=== PATIENT | female | born 1955 | race Asian ===

== ENCOUNTER 2017-02-20 00:03 | Emergency (ER) | payer OTHER ==
[~2017-02-20] VITALS: Ht 162.6 cm; Wt 60.5 kg
[2017-02-20 00:06] VITALS: Ht 162.6 cm; Wt 60.5 kg
[2017-02-20] MEDS ORDERED: AZIT250T94 PO (04:03)
[2017-02-20] MEDS ORDERED: ACET325T33 PO (04:03)
[2017-02-20] MEDS ORDERED: D-ME473S18 PO (04:03)
--- NOTE | 2017-02-20 04:25 | ERD ---
ER Documentation Chief Complaint Date/Time DATE: 02/20/17 TIME: 04:22 Chief Complaint cough x 10 days, fever at times HPI This patient is a 61-year-old female with history of hypertension, hypercholesterolemia, presenting to the emergency department for cough ongoing for the past 10 days. Symptoms are worsening. Additionally the patient reports tactile fevers. The patient states she is unsure whether she has had bronchitis or pneumonia in the past. The patient is currently taking no medications for relief of her symptoms. The patient denies nausea, vomiting, diarrhea, chest pain, shortness of breath, or other symptoms at this time. ROS All systems reviewed and are negative except as per history of present illness. Medications Home Meds Active Scripts Acetaminophen* (Tylenol*) 325 Mg Tablet, 2 TAB PO Q6 Y for PAIN AND OR ELEVATED TEMP, #20 TAB Prov:VICKI FLORENCE PA-C 02/20/17 Dextromethorphan Hb-Promethazine Hcl (Promethazine DM Syrup) 473 Ml Syrup, 5 ML PO Q6H Y for COUGH, #4 OZ Prov:VICKI FLORENCE PA-C 02/20/17 Azithromycin* (Zithromax*) 250 Mg Tablet, 250 MG PO .ZPACK DIRECTED, #6 TAB TAKE 500 MG (2 TABS) THE FIRST DAY THEN 250 MG (1 TAB) DAYS 2-5 Prov:VICKI FLORENCE PA-C 02/20/17 Allergies Allergies: Coded Allergies: No Known Allergy (Unverified , 02/20/17) PMhx/Soc History of Surgery: Yes (Vericose veins) Anesthesia Reaction: No Hx Cardiac Disorders: Yes (HTN cholesterol) Hx Alcohol Use: No Hx Substance Use: No Hx Tobacco Use: No Smoking Status: Never smoker FmHx Noncontributory for chief complaint Physical Exam Vitals Vital Signs Date Time Temp Pulse Resp B/P Pulse Ox O2 Delivery O2 Flow Rate FiO2 02/20/17 00:06 99.9 96 20 156/83 98 Physical Exam Const: The patient is resting comfortably in no acute distress. Head: Atraumatic Eyes: Normal Conjunctiva ENT: Normal External Ears, Nose and Mouth. Neck: Full range of motion..~ No meningismus. Resp: There is some basilar crackles auscultated on the right lower lung field. There are no wheezes auscultated. There are no signs of respiratory distress. Cardio: Regular rate and rhythm, no murmurs Abd: Soft, non tender, non distended. Normal bowel sounds Skin: No petechiae or rashes Back: No midline or flank tenderness Ext: No cyanosis, or edema Neur: Awake and alert Psych: Normal Mood and Affect Procedures/MDM 61-year-old female presents secondary to complaints of cough and tactile fevers. On physical examination the patient's vitals are within normal limits. Blood pressure slightly elevated at 156/83 which I believe is due to acute sickness. Auscultation of the lungs reveals mild crackles in the right base. I have suspicion for possible bronchitis versus early pneumonia and I will treat the patient as an outpatient with a prescription for azithromycin, Tylenol , and Promethazine DM. I had a discussion with the patient about possibility of chest x-ray but she declined at this time and would like the prescriptions. The patient was advised to return to the department immediately for any new or worsening symptoms she demonstrates good understanding of this information. I have low suspicion for pneumothorax, pulmonary embolism, pneumonia requiring admission, septicemia, or other emergent conditions at this time. The patient will be treated as an outpatient and she is stable to do so. All questions and concerns of been addressed. The patient is to follow-up with her primary care physician as soon as possible. Departure Diagnosis: Primary Impression: Cough Additional Impressions: Upper respiratory infection URI type: unspecified URI Qualified Code: J06.9 - Upper respiratory tract infection, unspecified type Bronchitis Condition: Fair Patient Instructions: Preventing Common Respiratory Infections, Bronchitis, Antiobiotic Treatment (Adult), Cough, Chronic, Uncertain Cause, (Adult) Referrals: [facility] YOU HAVE RECEIVED A MEDICAL SCREENING EXAM AND THE RESULTS INDICATE THAT YOU DO NOT HAVE A CONDITION THAT REQUIRES URGENT TREATMENT IN THE EMERGENCY DEPARTMENT. FURTHER EVALUATION AND TREATMENT OF YOUR CONDITION CAN WAIT UNTIL YOU ARE SEEN IN YOUR DOCTORS OFFICE WITHIN THE NEXT 1-2 DAYS. IT IS YOUR RESPONSIBILITY TO MAKE AN APPOINTMENT FOR FOLOW-UP CARE. IF YOU HAVE A PRIMARY DOCTOR --you should call your primary doctor and schedule an appointment IF YOU DO NOT HAVE A PRIMARY DOCTOR YOU CAN CALL OUR PHYSICIAN REFERRAL HOTLINE AT IF YOU CAN NOT AFFORD TO SEE A PHYSICIAN YOU CAN CHOSE FROM THE FOLLOWING [facility] [address] [facility] [address] [facility] [facility] [address] [facility] [address] [facility] [address] [facility]. [facility]. [address] Additional Instructions: Follow-up with your primary care physician within 1 week. Return to the emergency department immediately should you have any new or worsening symptoms, uncontrolled fevers, or other unexplained symptoms. Take all medications as directed. VICKI FLORENCE PA-C Feb 20, 2017 04:25
[2017-02-20 04:34] VITALS: BP 138/78; PULSE 90; RESP 20; TEMP 99
== END 2017-02-20 04:34 | disposition home or self-care (01) ==
LOC: FTE 00:03
DX: R05 Cough (principal); J06.9 Acute upper respiratory infection, unspecified; J20.9 Acute bronchitis, unspecified; I10 Essential (primary) hypertension
CPT/HCPCS: 99284